=== PATIENT | female | born 2000 | race Hispanic/Latino ===

== ENCOUNTER 2022-09-07 15:59 | Emergency (ER) | payer OTHER ==
[~2022-09-07] VITALS: Ht 170.2 cm; Wt 77.3 kg
[2022-09-07] MEDS ORDERED: MELO15TA28 PO (16:09)
[2022-09-07 16:18] VITALS: BP 122/73
[2022-09-07 16:45] LABS: HEMATOCRIT 48.5 % (36.0-47.0); MEAN CORPUSCULAR HEMOGLOBIN 28.4 pg (27.0-33.0); PLATELET COUNT, AUTOMATED 376 10^3/uL (150-450); RED BLOOD COUNT 5.64 10^6/uL (4.00-5.40); WHITE BLOOD COUNT 9.2 10^3/uL (4.0-10.0)
[2022-09-07 17:02] LABS: HCG, SERUM QUALITATIVE NEGATIVE (NEGATIVE)
[2022-09-07 17:08] LABS: ETHYL ALCOHOL (ETHANOL) 0.004 % (0.000-0.010)
[2022-09-07 17:10] LABS: ACETAMINOPHEN LEVEL < 2.0 UG/ML (10.0-20.0); ALBUMIN 3.9 G/DL (3.2-5.2); ALKALINE PHOSPHATASE 101 U/L (46-116); ALT/SGPT 20 U/L (7.0-40); AST/SGOT 20 U/L (<34); BILIRUBIN,DIRECT 0.1 MG/DL (<0.4); BILIRUBIN,TOTAL 0.4 MG/DL (0.3-1.2); BLOOD UREA NITROGEN 19 MG/DL (9-23); CALCIUM LEVEL 9.5 MG/DL (8.5-10.1); CARBON DIOXIDE LEVEL 26 MMOL/L (20-31); CHLORIDE LEVEL 106 MMOL/L (98-107); CREATININE FOR GFR 0.91 MG/DL (0.55-1.30); GLUCOSE, FASTING 99 MG/DL (60-100); POTASSIUM SERUM 4.6 MMOL/L (3.5-5.1); SALICYLATE LEVEL < 3.0 MG/DL (<30); SODIUM LEVEL 139 MMOL/L (136-145); TOTAL PROTEIN 7.4 G/DL (5.7-8.2)
[2022-09-07 17:13] LABS: THYROID STIMULATING HORMONE 2.695 uIU/ML (0.48-4.17)
[2022-09-07 18:50] LABS: AMPHETAMINES LEVEL URINE NEGATIVE (NEGATIVE); BARBITURATES URINE NEGATIVE (NEGATIVE); BENZODIAZEPINES URINE NEGATIVE (NEGATIVE); CANNABINOIDS URINE NEGATIVE (NEGATIVE); METHADONE URINE NEGATIVE (NEGATIVE); OPIATES URINE NEGATIVE (NEGATIVE); PHENCYCLIDINE URINE NEGATIVE (NEGATIVE)
[2022-09-07 18:51] LABS: COCAINE METABOLITE URINE NEGATIVE (NEGATIVE)
== END 2022-09-07 23:06 | disposition home or self-care (01) ==
LOC: M ED 15:59
DX: F32.A Depression, unspecified (principal); U07.1 COVID-19

== ENCOUNTER 2022-09-29 15:47 | Emergency (ER) | payer OTHER ==
[~2022-09-29] VITALS: Ht 167.6 cm; Wt 81.8 kg
[~2022-09-29 15:47] MED LIST: MELO15TA28 PO
[2022-09-29 19:30] VITALS: BP 129/62
== END 2022-09-29 19:35 | disposition home or self-care (01) ==
LOC: M ED 15:47
DX: Z32.01 Encounter for pregnancy test, result positive (principal)

== ENCOUNTER → 2022-11-17 | Outpatient (CLI) | payer OTHER ==
[2022-11-17 18:16] LABS: HEMATOCRIT 44.5 % (36.0-47.0); HEMOGLOBIN 15.4 g/dl (12.0-15.5); MEAN CORPUSCULAR HEMOGLOBIN 29.4 pg (27.0-33.0); MEAN CORPUSCULAR HGB CONC 34.6 g/dl (32.0-36.5); MEAN CORPUSCULAR VOLUME 84.9 fl (80.0-96.0); PLATELET COUNT, AUTOMATED 265 10^3/uL (150-450); RED BLOOD COUNT 5.24 10^6/uL (4.00-5.40); WHITE BLOOD COUNT 8.3 10^3/uL (4.0-10.0)
[2022-11-17 18:55] LABS: HIV 1&2 SCREEN ATELLICA NEGATIVE (NEGATIVE)
== END ==
LOC: M PLALAB 15:50
PROVIDERS: ATTEND Obstetrics & Gynecology
DX: Z34.90 Encounter for supervision of normal pregnancy, unspecified, unspecified trimester (principal)

== ENCOUNTER → 2022-11-17 | Outpatient (REF) | payer OTHER | LOC: M PLALAB 15:41 | PROVIDERS: ATTEND Obstetrics & Gynecology | DX: Z53.9 Procedure and treatment not carried out, unspecified reason (principal) ==

== ENCOUNTER 2022-12-23 09:00 | Emergency (ER) | payer OTHER ==
[~2022-12-23] VITALS: Ht 167.6 cm; Wt 85.6 kg
[2022-12-23 09:55] LABS: BASO % 0.1 % (0.0-1.0); EOS # 0.1 10^3/uL (0.0-0.5); HEMOGLOBIN 13.5 g/dl (12.0-15.5); LYMPH # 1.3 10^3/uL (1.5-5.0); LYMPH % 18.5 % (24.0-44.0); MEAN CORPUSCULAR HEMOGLOBIN 28.8 pg (27.0-33.0); MEAN CORPUSCULAR HGB CONC 33.8 g/dl (32.0-36.5); MEAN CORPUSCULAR VOLUME 85.3 fl (80.0-96.0); MONO # 0.5 10^3/uL (0.0-0.8); MONO % 6.5 % (2.0-8.0); NEUTROPHILS # 5.1 10^3/uL (1.5-8.5); NEUTROPHILS % 73.3 % (36.0-66.0); PLATELET COUNT, AUTOMATED 208 10^3/uL (150-450); RED BLOOD COUNT 4.69 10^6/uL (4.00-5.40); WHITE BLOOD COUNT 6.9 10^3/uL (4.0-10.0)
[2022-12-23 10:18] LABS: BLOOD UREA NITROGEN 7 MG/DL (9-23); CALCIUM LEVEL 8.4 MG/DL (8.5-10.1); CARBON DIOXIDE LEVEL 24 MMOL/L (20-31); CHLORIDE LEVEL 105 MMOL/L (98-107); GLUCOSE, FASTING 97 MG/DL (60-100); MAGNESIUM LEVEL 1.7 MG/DL (1.8-2.4); POTASSIUM SERUM 4.1 MMOL/L (3.5-5.1); SODIUM LEVEL 137 MMOL/L (136-145)
[2022-12-23 10:20] LABS: T UPTAKE 21.4 % (22.5-37.0); THYROID STIMULATING HORMONE 2.647 uIU/ML (0.48-4.17)
[2022-12-23 12:26] LABS: HCG, SERUM QUALITATIVE POSITIVE (NEGATIVE)
[2022-12-23 13:16] VITALS: BP 124/60
[2022-12-23 14:13] LABS: FREE THYROXINE INDEX 2.5 % (1.3-4.8); THYROXINE (T4) 11.9 UG/DL (5.5-11.1)
== END 2022-12-23 13:20 | disposition home or self-care (01) ==
LOC: M ED 09:00
DX: O99.412 Diseases of the circulatory system complicating pregnancy, second trimester (principal); Z3A.17 17 weeks gestation of pregnancy

== ENCOUNTER 2023-01-19 13:16 | Outpatient (CLI) | payer OTHER ==
[~2023-01-19] VITALS: Ht 167.6 cm; Wt 86.7 kg
[2023-01-19 13:45] VITALS: BP 118/59
[2023-01-19] MEDS ORDERED: PRENTAB9 PO (13:50)
[2023-01-19] MEDS ORDERED: HOME MED LIST COMPLETE! XX SCH (13:55)
[2023-01-19 15:51] LABS: APPEARANCE, URINE MANUAL CLEAR (CLEAR); COLOR, URINE MANUAL YELLOW (YELLOW)
[2023-01-19 15:52] LABS: BILIRUBIN, URINE MANUAL NEGATIVE (NEGATIVE); GLUCOSE, URINE (UA) MANUAL NEGATIVE (NEGATIVE); KETONE, URINE MANUAL 1+ mg/dL (NEGATIVE); LEUKOCYTE ESTERASE, URINE MAN POSITIVE (NEGATIVE); NITRITE, URINE MANUAL NEGATIVE (NEGATIVE); PH,URINE MAN 6.5 UNITS (5.0 - 7.0); PROTEIN, URINE MANUAL NEGATIVE (NEGATIVE); SPECIFIC GRAVITY,URINE MANUAL 1.015 (1.002-1.035); UROBILINOGEN, URINE MANUAL NORMAL (NORMAL)
[2023-01-19 15:53] LABS: BLOOD URINE MANUAL NEGATIVE (NEGATIVE)
[2023-01-19 16:04] LABS: BACTERIA, URINE SMALL AMOUNT; HYALINE CAST, URINE NONE SEEN /lpf (0-1); MUCUS, URINE MOD AMOUNT (NEGATIVE); RBC, URINE NONE SEEN /hpf (0-3); SQUAMOUS EPITHELIAL CELL URINE LARGE AMOUNT /hpf (SMALL AMT)
== END 2023-01-19 16:16 | disposition home or self-care (01) ==
LOC: M LDO 13:16
PROVIDERS: ATTEND Advanced Practice Midwife
DX: O26.852 Spotting complicating pregnancy, second trimester (principal); Z3A.21 21 weeks gestation of pregnancy
CPT/HCPCS: 59025; 81000; 87070; 87077; 87088; 87186; G0463

== ENCOUNTER → 2023-02-04 | Outpatient (CLI) | payer OTHER ==
[~2023-02-04] MED LIST changes: +PRENTAB9 PO
== END ==
LOC: M WHC 14:49
PROVIDERS: ATTEND Obstetrics & Gynecology
DX: Z34.01 Encounter for supervision of normal first pregnancy, first trimester (principal)

== ENCOUNTER → 2023-02-24 | Outpatient (CLI) | payer OTHER ==
[2023-02-24 18:41] LABS: HEMOGLOBIN 11.4 g/dl (12.0-15.5); MEAN CORPUSCULAR HEMOGLOBIN 28.3 pg (27.0-33.0); MEAN CORPUSCULAR HGB CONC 32.6 g/dl (32.0-36.5); MEAN CORPUSCULAR VOLUME 86.8 fl (80.0-96.0); PLATELET COUNT, AUTOMATED 244 10^3/uL (150-450); RED BLOOD COUNT 4.03 10^6/uL (4.00-5.40)
[2023-02-24 21:25] LABS: GC DNA AMPLIFICATION NEGATIVE (NEGATIVE)
== END ==
LOC: M PLALAB 14:43
PROVIDERS: ATTEND Obstetrics & Gynecology
DX: Z34.02 Encounter for supervision of normal first pregnancy, second trimester (principal)

== ENCOUNTER → 2023-03-26 | Outpatient (CLI) | payer OTHER | LOC: M WHC 11:35 | PROVIDERS: ATTEND Obstetrics & Gynecology | DX: Z36.2 Encounter for other antenatal screening follow-up (principal) | CPT/HCPCS: 76816; 76820; 90471; 90715; G0463 ==

== ENCOUNTER → 2023-05-07 | Outpatient (REF) | payer OTHER ==
[~2023-05-07] MED LIST changes: +PEPC1TAB5 PO
== END ==
LOC: M PLALAB 13:18
PROVIDERS: ATTEND Advanced Practice Midwife
DX: Z34.03 Encounter for supervision of normal first pregnancy, third trimester (principal)
CPT/HCPCS: 87081; G0463

== ENCOUNTER 2023-06-02 10:40 | Inpatient (IN) | payer OTHER, SELFPAY ==
[~2023-06-02] VITALS: Ht 167.6 cm; Wt 110.5 kg
[2023-06-02] VITALS (8 sets, daily range): BP systolic 126–145; BP diastolic 67–84
[~2023-06-02 10:40] MED LIST changes: -PEPC1TAB5 PO
[2023-06-02] MEDS ORDERED: PEPC1TAB5 PO (11:03)
[2023-06-02] MEDS ORDERED: HOME MED LIST COMPLETE! XX SCH (11:05)
[2023-06-02 13:52] LABS: HEMATOCRIT 34.7 % (36.0-47.0); HEMOGLOBIN 11.2 g/dl (12.0-15.5); MEAN CORPUSCULAR HEMOGLOBIN 24.8 pg (27.0-33.0); MEAN CORPUSCULAR HGB CONC 32.3 g/dl (32.0-36.5); MEAN CORPUSCULAR VOLUME 76.9 fl (80.0-96.0); PLATELET COUNT, AUTOMATED 275 10^3/uL (150-450); RED BLOOD COUNT 4.51 10^6/uL (4.00-5.40)
[2023-06-02 14:02] LABS: TOTAL PROTEIN,RANDOM URINE 18.6 MG/DL (0.0-14.0)
[2023-06-02 14:07] LABS: CREATININE,RANDOM URINE 117.5 MG/DL; LDH LACTATE DEHYDROGENASE 234 U/L (120-246)
[2023-06-02 14:09] LABS: ALT/SGPT 12 U/L (7.0-40); AST/SGOT 20 U/L (<34); BILIRUBIN,TOTAL 0.3 MG/DL (0.3-1.2); CREATININE FOR GFR 0.52 MG/DL (0.55-1.30); GLOMERULAR FILTRATION RATE > 60.0 (>60)
[2023-06-02 14:28] LABS: URIC ACID 4.1 MG/DL (3.1-7.8)
[2023-06-02] MEDS ORDERED: TRANEXAMIC ACID INJection 1,000 MG in NS 100 ML IV PRN (16:05)
[2023-06-02] MEDS ORDERED: OXYTOCIN DRIP 30 UNITS in IV 1 EA IV PRN (16:05)
[2023-06-02] MEDS ORDERED: LIDOCAINE 1% MDV 20ML VIAL INFIL PRN (16:05)
[2023-06-02] MEDS: miSOPROStol 50MCG 1/2 TABLET PO SCH ×2 (16:20→20:42)
[2023-06-03] VITALS (44 sets, daily range): BP systolic 105–151; BP diastolic 56–84; O2SAT 98
[2023-06-03] MEDS: miSOPROStol 50MCG 1/2 TABLET PO SCH ×2 (01:46→06:12)
[2023-06-03] MEDS ORDERED: OXYTOCIN DRIP 30 UNITS in IV 1 EA IV SCH ×2 (10:40→18:50)
[2023-06-03] MEDS ORDERED: LR 1,000 ML IV SCH (10:45)
[2023-06-03] MEDS ORDERED: LACTATED RINGER'S 1000 ML IV ONE (10:45)
[2023-06-03] MEDS: LR 1,000 ML IV SCH ×2 (10:58→15:53)
[2023-06-03] MEDS ORDERED: LR 1,000 ML IV ONE (11:00)
[2023-06-03] MEDS ORDERED: NALOXONE INJ 0.4MG/1ML VIAL IV PRN (12:15)
[2023-06-03] MEDS ORDERED: diphenhydrAMINE 50MG/ML VIAL IV PRN (12:15)
[2023-06-03] MEDS ORDERED: ONDANSETRON 4MG 2ML VIAL IV PRN (12:15)
[2023-06-03] MEDS ORDERED: LR 500 ML IV PRN (12:15)
[2023-06-03] MEDS ORDERED: FENTANYL/ROPIVACAINE/NACL BAG 100 ML EPIDURAL SCH (12:15)
[2023-06-03] MEDS ORDERED: ePHEDrine SULFATE 25 MG/5 ML(5MG/ML) SYRINGE IVP PRN (12:15)
[2023-06-03] MEDS ORDERED: EPIDURAL/PCA KEYS XX PRN (12:15)
[2023-06-03] MEDS ORDERED: ACETAMINOPHEN 500 MG TAB PO PRN (19:40)
[2023-06-03] MEDS ORDERED: IBUPROFEN 600MG TAB PO PRN (19:40)
[2023-06-03] MEDS ORDERED: ACETAMINOPHEN TAB 650MG DOSE (2X325MG) PO PRN (19:40)
[2023-06-03] MEDS ORDERED: DIBUCAINE 1% OINTMENT 30GM TOP PRN (19:40)
[2023-06-03] MEDS ORDERED: DOCUSATE SODIUM 100MG CAPSULE PO PRN (19:40)
[2023-06-03] MEDS ORDERED: METHYLERGONOVINE MALEATE 0.2 MG TAB PO PRN (19:40)
[2023-06-03] MEDS ORDERED: RHOGAM 300MCG (1500IU) INJ IM SCH (19:40)
[2023-06-03] MEDS: IBUPROFEN 800 MG TAB PO PRN ×2 (23:01→23:31)
[2023-06-04 06:00] VITALS: BP 109/57; O2SAT 98
[2023-06-04] MEDS: PRENATAL VITAMINS CHEWABLE TABLET PO SCH (08:00)
[2023-06-04] MEDS: IBUPROFEN 800 MG TAB PO PRN (08:00)
[2023-06-04 10:00] VITALS: BP 125/59; O2SAT 99
[2023-06-04 14:00] VITALS: BP 121/56; O2SAT 97
[2023-06-04 18:00] VITALS: BP 116/57; O2SAT 100
[2023-06-04 22:00] VITALS: BP 103/54; O2SAT 99
[2023-06-05 02:00] VITALS: BP 117/57; O2SAT 98
[2023-06-05 06:00] VITALS: BP 102/56; O2SAT 98
[2023-06-05] MEDS ORDERED: MEASLES,MUMPS,RUBELLA VACCINE INJ (MMR-II) SC.IMMUN ONE (09:00)
[2023-06-05] MEDS: PRENATAL VITAMINS CHEWABLE TABLET PO SCH (09:22)
[2023-06-05 10:00] VITALS: BP 125/71; O2SAT 97
== END 2023-06-05 14:00 | disposition home or self-care (01) | DRG 807 ==
LOC: M LDO 10:40 → M LDI 14:40 → M OBS 06-03 21:02
PROVIDERS: ADMIT Obstetrics & Gynecology; ATTEND Advanced Practice Midwife
PROC: 3E0P7GC Introduction of Other Therapeutic Substance into Female Reproductive, Via Natural or Artificial Opening (ICD-10-PCS; 2023-06-02)
PROC: 10E0XZZ Delivery of Products of Conception, External Approach (ICD-10-PCS; principal; 2023-06-03)
PROC: 0KQM0ZZ Repair Perineum Muscle, Open Approach (ICD-10-PCS; 2023-06-03)
DX: O13.4 Gestational [pregnancy-induced] hypertension without significant proteinuria, complicating childbirth (principal); Z37.0 Single live birth; O70.1 Second degree perineal laceration during delivery; Z3A.40 40 weeks gestation of pregnancy